=== PATIENT | male | born 1950 | race Caucasian/White ===

== ENCOUNTER 2023-03-31 03:40 | Emergency (ER) | payer MEDICARE, BC | END 2023-03-31 04:41 | disposition left against medical advice (07) | LOC: ER 03:50 | DX: Z53.21 Procedure and treatment not carried out due to patient leaving prior to being seen by health care provider (principal) ==

== ENCOUNTER 2025-02-03 12:55 | Inpatient (IN) | payer MEDICARE, BC ==
[~2025-02-03] VITALS: Ht 180.3 cm; Wt 79.4 kg
[2025-02-03] VITALS (8 sets, daily range): BP systolic 115–116; BP diastolic 75–85; TEMP 97.5–98.7; O2SAT 94–97
[2025-02-03] MEDS ORDERED: ESCI5TAB16 PO (13:06)
[2025-02-03] MEDS ORDERED: BUPR150T10 PO (13:06)
[2025-02-03] MEDS ORDERED: RAME8TAB24 PO (13:06)
[2025-02-03] MEDS ORDERED: TRAM50TA2 PO (13:06)
[2025-02-03] MEDS ORDERED: TAMS-3 PO (13:06)
[2025-02-03] MEDS ORDERED: AMLO10TA59 PO (13:07)
[2025-02-03] MEDS ORDERED: TELM80TA9 PO (13:07)
[2025-02-03 13:45] LABS: PLATELET COUNT (AUTO) 278 K/uL (152-348); RED BLOOD CELL COUNT(AUTO) 4.94 MIL/uL (4.06-5.63); RED CELL DISTRIBUTION WIDTH 14.5 % (12.1-16.2); WHITE BLOOD COUNT (AUTO) 8.0 K/uL (3.6-10.2)
[2025-02-03] MEDS ORDERED: ALBUTEROL SULFATE 2.5 MG/3 ML NEBU ONE (13:45)
[2025-02-03] MEDS ORDERED: IPRATROPIUM BROMIDE 0.5 MG/2.5 ML NEBU ONE (13:45)
[2025-02-03 13:51] LABS: CREATININE 1.4 mg/dL (0.6-1.3); SODIUM SERUM 140 mmol/L (136-145); UREA NITROGEN, BLOOD 17 mg/dL (7-18)
[2025-02-03] MEDS: ALBUTEROL SULFATE 2.5 MG/3 ML NEBU NEB ONE (13:53)
[2025-02-03] MEDS: IPRATROPIUM BROMIDE 0.5 MG/2.5 ML NEBU NEB ONE (13:53)
[2025-02-03] MEDS: MAGNESIUM SULFATE 2 GM in IV DEXTROSE 5% 100 ML IV ONE (13:56)
[2025-02-03] MEDS ORDERED: MAGNESIUM SULFATE/D5W 200 ML ONE (13:56)
[2025-02-03 13:57] LABS: ASPARTATE AMINOTRANSFERASE 12 U/L (15-37); TOTAL PROTEIN, SERUM 8.4 g/dL (6.4-8.2)
[2025-02-03] MEDS ORDERED: OXYCODONE/APAP 5-325 MG TABLET ONE (15:13)
[2025-02-03] MEDS ORDERED: SULF1TAB48 PO (15:31)
[2025-02-03] MEDS ORDERED: PHEN-705 PO (15:31)
[2025-02-03] MEDS: OXYCODONE/APAP 5-325 MG TABLET PO ONE (15:33)
[2025-02-03] MEDS ORDERED: ACET-73 PO (18:08)
[2025-02-03] MEDS ORDERED: OMEP20TA20 PO (18:08)
[2025-02-03] MEDS ORDERED: MAGN400T40 PO (18:09)
[2025-02-03] MEDS ORDERED: BUPR-53 PO (18:12)
[2025-02-03] MEDS ORDERED: PHENAZOPYRIDINE HCL 200 MG PO PRN (18:30)
[2025-02-03] MEDS ORDERED: TEMAZEPAM 15 MG CAPSULE PO PRN (19:00)
[2025-02-03] MEDS ORDERED: ONDANSETRON 4 MG/2 ML VIAL IV PRN (19:00)
[2025-02-03] MEDS: TAMSULOSIN HCL 0.4 MG CAP.SR.24H PO SCH (20:25)
[2025-02-03] MEDS: MAGNESIUM OXIDE 400 MG TABLET PO SCH (20:25)
[2025-02-03] MEDS: DOCUSATE SODIUM 100 MG CAPSULE PO SCH (20:25)
[2025-02-03] MEDS: HYDROCODONE/APAP 5-325MG TABLET PO PRN (20:27)
[2025-02-03] MEDS: LEVALBUTEROL HCL NEB 0.63 MG/3 ML NEBU NEB PRN (21:40)
[2025-02-03] MEDS: IPRATROPIUM BROMIDE 0.5 MG/2.5 ML NEBU NEB PRN (21:40)
[2025-02-04] VITALS (13 sets, daily range): BP systolic 120–146; BP diastolic 78–85; TEMP 97.6–99.1; O2SAT 90–97
[2025-02-04] MEDS: TRAMADOL HCL 50 MG TABLET PO PRN (00:02)
[2025-02-04] MEDS: PANTOPRAZOLE SODIUM 40 MG TABLET.DR PO SCH (06:18)
[2025-02-04 07:17] LABS: PLATELET COUNT (AUTO) 273 K/uL (152-348); RED BLOOD CELL COUNT(AUTO) 4.72 MIL/uL (4.06-5.63); RED CELL DISTRIBUTION WIDTH 14.6 % (12.1-16.2); WHITE BLOOD COUNT (AUTO) 5.5 K/uL (3.6-10.2)
[2025-02-04 07:31] LABS: ASPARTATE AMINOTRANSFERASE 7 U/L (15-37); CREATININE 1.3 mg/dL (0.6-1.3); SODIUM SERUM 137 mmol/L (136-145); TOTAL PROTEIN, SERUM 7.8 g/dL (6.4-8.2); UREA NITROGEN, BLOOD 14 mg/dL (7-18)
[2025-02-04] MEDS: ESCITALOPRAM OXALATE 10 MG TABLET PO SCH (08:55)
[2025-02-04] MEDS: buPROPion XL 150 MG TAB.SR.24H PO SCH (08:55)
[2025-02-04] MEDS ORDERED: SWABABLE VALVE TRANSFER SET EA MC ONE (12:33)
[2025-02-04] MEDS ORDERED: IOHEXOL 350 100 ML INFUS..BTL ONE (12:33)
[2025-02-04] MEDS ORDERED: IV NORMAL SALINE 250 ML IV ONE (12:33)
[2025-02-04 12:57] LABS: *BLOOD, URINE 3+ (NEGATIVE); *CLARITY,URINE CLEAR (CLEAR); *COLOR,URINE YELLOW (YELLOW); *KETONES,URINE 2+ (NEGATIVE); *PROTEIN,URINE 1+ (NEGATIVE); *UROBILINOGEN,URINE 0.2 E.U./dl (NORMAL); LEUKOCYTE ESTERASE ,URINE NEGATIVE (NEGATIVE); NITRITE, URINE POSITIVE (NEGATIVE); UGLUCOSE NEGATIVE (NEGATIVE)
[2025-02-04 13:02] LABS: *BILIRUBIN,URIN 1+ (NEGATIVE)
[2025-02-04 13:04] LABS: *CREATININE,URINE 223.7 mg/dL (30-125); *SODIUM RNDM,URINE 138.0 mmol/L (40-220); *URINE TOTAL PROTEIN RANDOM 41.5 mg/dL (<150/24HR)
[2025-02-04] MEDS ORDERED: MAGNESIUM OXIDE 400 MG TABLET PO SCH (21:00)
[2025-02-04] MEDS: GUAIFENESIN/DEXTROMETHORPHAN 5 ML UDC PO PRN (22:34)
[2025-02-05] VITALS (13 sets, daily range): BP systolic 122–151; BP diastolic 73–87; TEMP 97.6–98.6; O2SAT 90–99
[2025-02-05] MEDS: TEMAZEPAM 7.5 MG CAPSULE PO PRN (00:03)
[2025-02-05 06:22] LABS: PLATELET COUNT (AUTO) 313 K/uL (152-348); RED BLOOD CELL COUNT(AUTO) 4.72 MIL/uL (4.06-5.63); RED CELL DISTRIBUTION WIDTH 14.5 % (12.1-16.2); WHITE BLOOD COUNT (AUTO) 12.5 K/uL (3.6-10.2)
[2025-02-05 06:37] LABS: ASPARTATE AMINOTRANSFERASE 21 U/L (15-37); CREATINE KINASE, TOTAL 307 U/L (39-308); CREATININE 1.6 mg/dL (0.6-1.3); SODIUM SERUM 141 mmol/L (136-145); TOTAL PROTEIN, SERUM 8.7 g/dL (6.4-8.2); UREA NITROGEN, BLOOD 32 mg/dL (7-18)
[2025-02-05] MEDS ORDERED: AZITHROMYCIN IV 500 MG in IV DEXTROSE 5% 250 ML IV SCH (09:00)
[2025-02-05] MEDS: CEFTRIAXONE 1 G in IV DEXTROSE 5% 50 ML IV SCH (09:11)
[2025-02-05] MEDS: AZITHROMYCIN IV 500 MG in IV DEXTROSE 5% 250 ML IV SCH (09:49)
[2025-02-05] MEDS: LEVALBUTEROL HCL NEB 0.63 MG/3 ML NEBU NEB SCH (13:17)
[2025-02-05] MEDS: IPRATROPIUM BROMIDE 0.5 MG/2.5 ML NEBU NEB SCH (13:17)
[2025-02-05] MEDS: ACETAMINOPHEN 325 MG TABLET PO PRN (22:14)
[2025-02-06] VITALS (12 sets, daily range): BP systolic 131–153; BP diastolic 74–91; TEMP 97.3–98.2; O2SAT 90–98
[2025-02-06 06:07] LABS: PTH, INTACT 12 pg/mL (15-65)
[2025-02-06 06:50] LABS: PLATELET COUNT (AUTO) 331 K/uL (152-348); RED BLOOD CELL COUNT(AUTO) 4.93 MIL/uL (4.06-5.63); RED CELL DISTRIBUTION WIDTH 14.5 % (12.1-16.2); WHITE BLOOD COUNT (AUTO) 13.4 K/uL (3.6-10.2)
[2025-02-06 07:16] LABS: CREATININE 1.5 mg/dL (0.6-1.3); SODIUM SERUM 142 mmol/L (136-145); UREA NITROGEN, BLOOD 36 mg/dL (7-18)
[2025-02-06] MEDS ORDERED: hydrOXYzine HCL 10 MG/5 ML UDC PO PRN (12:30)
[2025-02-07] VITALS (11 sets, daily range): BP systolic 124–149; BP diastolic 79–89; TEMP 97.6–97.8; O2SAT 95–99
[2025-02-07 06:44] LABS: PLATELET COUNT (AUTO) 334 K/uL (152-348); RED BLOOD CELL COUNT(AUTO) 5.09 MIL/uL (4.06-5.63); RED CELL DISTRIBUTION WIDTH 14.6 % (12.1-16.2); WHITE BLOOD COUNT (AUTO) 14.1 K/uL (3.6-10.2)
[2025-02-07 07:02] LABS: CREATININE 1.4 mg/dL (0.6-1.3); SODIUM SERUM 143 mmol/L (136-145); UREA NITROGEN, BLOOD 38 mg/dL (7-18)
[2025-02-07] MEDS: QUETIAPINE FUMARATE 25 MG TABLET PO SCH (12:14)
[2025-02-07] MEDS: OLANZAPINE 10 MG VIAL IM ONE ×2 (14:38→23:51)
[2025-02-07] MEDS: ZIPRASIDONE MESYLATE 20 MG VIAL IM ONE (15:52)
[2025-02-07] MEDS: IV D5 1/2 NS 1000 ML 1,000 ML IV PRN (21:04)
[2025-02-08] VITALS (16 sets, daily range): BP systolic 127–144; BP diastolic 77–119; TEMP 98.2–98.4; O2SAT 92–99
[2025-02-08 06:39] LABS: PLATELET COUNT (AUTO) 365 K/uL (152-348); RED BLOOD CELL COUNT(AUTO) 5.39 MIL/uL (4.06-5.63); RED CELL DISTRIBUTION WIDTH 14.7 % (12.1-16.2); WHITE BLOOD COUNT (AUTO) 17.1 K/uL (3.6-10.2)
[2025-02-08 06:56] LABS: CREATININE 1.3 mg/dL (0.6-1.3); SODIUM SERUM 139 mmol/L (136-145); UREA NITROGEN, BLOOD 38 mg/dL (7-18)
[2025-02-08] MEDS: OLANZAPINE 10 MG VIAL IM ONE ×2 (08:03→16:47)
[2025-02-08 08:55] LABS: LYMPHOCYTES % (MANUAL) 19 % (20-40); MONOCYTES % (MANUAL) 15 % (2-10); NEUTROPHILS % (MANUAL) 65 % (42-75)
[2025-02-08 08:56] LABS: EOSINOPHILS % (MANUAL) 1 % (0-8); PLATELET ESTIMATE ADEQUATE
[2025-02-08] MEDS: ESCITALOPRAM OXALATE 10 MG TABLET PO SCH (09:00)
[2025-02-08] MEDS: buPROPion XL 150 MG TAB.SR.24H PO SCH (09:00)
[2025-02-08] MEDS: QUETIAPINE FUMARATE 25 MG TABLET PO SCH (11:30)
[2025-02-08] MEDS: QUETIAPINE FUMARATE 25 MG TABLET PO PRN (12:27)
[2025-02-09] VITALS (14 sets, daily range): BP systolic 103–147; BP diastolic 62–84; TEMP 97.7–98.3; O2SAT 94–99
[2025-02-09 06:52] LABS: PLATELET COUNT (AUTO) 274 K/uL (152-348); RED BLOOD CELL COUNT(AUTO) 5.00 MIL/uL (4.06-5.63); RED CELL DISTRIBUTION WIDTH 14.2 % (12.1-16.2); WHITE BLOOD COUNT (AUTO) 11.4 K/uL (3.6-10.2)
[2025-02-09 07:05] LABS: CREATININE 0.9 mg/dL (0.6-1.3); SODIUM SERUM 139 mmol/L (136-145); UREA NITROGEN, BLOOD 32 mg/dL (7-18)
[2025-02-09] MEDS ORDERED: OLANZAPINE 10 MG VIAL IM PRN (10:15)
[2025-02-09] MEDS ORDERED: LORAZEPAM 0.5 MG TABLET PO PRN (11:00)
[2025-02-09] MEDS ORDERED: DOCU-141 PO (11:06)
[2025-02-09] MEDS ORDERED: LEVA0.635 NEB ×2 (11:06)
[2025-02-09] MEDS ORDERED: ESCI-9 PO (11:06)
[2025-02-09] MEDS ORDERED: AMOX-427 PO (11:06)
[2025-02-09] MEDS ORDERED: LORA0.5T48 PO (11:06)
[2025-02-09] MEDS ORDERED: IPRA0.2S6 NEB ×2 (11:06)
[2025-02-09] MEDS: POTASSIUM CHLORIDE 20 MEQ TAB.PRT.SR PO ONE (12:36)
[2025-02-10 07:11] VITALS: O2SAT 96
[2025-02-10 07:26] VITALS: O2SAT 99
[2025-02-10 07:45] VITALS: BP 113/75; TEMP 97.7; O2SAT 97
[2025-02-10 08:07] LABS: A/G RATIO 0.9 (0.7-1.7); BETA GLOBULIN 1.2 g/dL (0.7-1.3); GLOBULIN, TOTAL 4.0 g/dL (2.2-3.9); M-SPIKE Not Observed g/dL (Not Observed); PROTEIN, TOTAL 7.5 g/dL (6.0-8.5)
[2025-02-10] MEDS: ESCITALOPRAM OXALATE 10 MG TABLET PO SCH (08:23)
[2025-02-10 09:07] LABS: METHYLMALONIC ACID 289.0 nmol/L (0-378)
[2025-02-10 13:08] VITALS: O2SAT 97
[2025-02-10 13:23] VITALS: O2SAT 99
[2025-02-10] MEDS: LIDOCAINE VISCUS 2% 15 ML UDC MM PRN (16:13)
[2025-02-10 16:25] VITALS: BP 110/68; TEMP 97.5; O2SAT 97
[2025-02-10] MEDS ORDERED: OLAN10VI IM (17:28)
== END 2025-02-10 16:51 | DRG 177 ==
LOC: ER 12:55 → MEDSURG3 16:49 → TELE3 18:09 → MEDSURG3 02-06 06:46 → TELE3 02-08 11:22 → MEDSURG3 02-10 09:13
PROVIDERS: ADMIT Internal Medicine; ATTEND Internal Medicine
PROC: 05HB33Z Insertion of Infusion Device into Right Basilic Vein, Percutaneous Approach (ICD-10-PCS; principal; 2025-02-03)
PROC: 05HD33Z Insertion of Infusion Device into Right Cephalic Vein, Percutaneous Approach (ICD-10-PCS; 2025-02-04)
DX: J69.0 Pneumonitis due to inhalation of food and vomit (principal); G92.8 Other toxic encephalopathy; J96.01 Acute respiratory failure with hypoxia; N17.0 Acute kidney failure with tubular necrosis; J44.0 Chronic obstructive pulmonary disease with (acute) lower respiratory infection; J21.9 Acute bronchiolitis, unspecified; F33.2 Major depressive disorder, recurrent severe without psychotic features; D68.59 Other primary thrombophilia; J44.1 Chronic obstructive pulmonary disease with (acute) exacerbation; M16.11 Unilateral primary osteoarthritis, right hip; Z85.51 Personal history of malignant neoplasm of bladder; J43.9 Emphysema, unspecified; T38.0X5A Adverse effect of glucocorticoids and synthetic analogues, initial encounter; Y92.239 Unspecified place in hospital as the place of occurrence of the external cause; F12.10 Cannabis abuse, uncomplicated; F14.11 Cocaine abuse, in remission; Z74.09 Other reduced mobility; F41.9 Anxiety disorder, unspecified; N40.1 Benign prostatic hyperplasia with lower urinary tract symptoms; R33.8 Other retention of urine; Z78.1 Physical restraint status; K22.9 Disease of esophagus, unspecified; M89.8X9 Other specified disorders of bone, unspecified site; D64.9 Anemia, unspecified; R73.9 Hyperglycemia, unspecified; Z79.899 Other long term (current) drug therapy; J98.4 Other disorders of lung; C67.9 Malignant neoplasm of bladder, unspecified; I10 Essential (primary) hypertension
CPT/HCPCS: 36415; 70030-TC; 70450; 71045; 71275; 73502; 76770; 82378; 83735; 83921; 83970; 84100; 84155; 84165; 84300; 84443; 84484; 85025; 86140; 87086; 93307; 94640; 94760; A4606; A4663; G0378; J0456; J0696; J2358; J2919; J3475; J3486; J3590; J7050; J7614; J8499; Q9967

== ENCOUNTER 2025-02-06 07:16 | Inpatient (IN) | payer MEDICARE, BC ==
[~2025-02-06] VITALS: Ht 180.3 cm; Wt 79.4 kg
[~2025-02-06 07:16] MED LIST: ACET-73 PO; TAMS-3 PO; TELM80TA9 PO; TRAM50TA2 PO
[2025-02-06 10:41] VITALS: BP 143/91; TEMP 97.8
[2025-02-06 11:45] VITALS: BP 143/91; TEMP 97.8
[2025-02-09] MEDS ORDERED: ESCI-9 PO (11:06)
[2025-02-09] MEDS ORDERED: AMOX-427 PO (11:06)
[2025-02-09] MEDS ORDERED: LEVA0.635 NEB ×2 (11:06)
[2025-02-09] MEDS ORDERED: IPRA0.2S6 NEB ×2 (11:06)
[2025-02-09] MEDS ORDERED: DOCU-141 PO (11:06)
[2025-02-09] MEDS ORDERED: LORA0.5T48 PO (11:06)
[2025-02-09 12:00] VITALS: BP 143/91; TEMP 97.8
[2025-02-09 12:10] VITALS: BP 143/91; TEMP 97.8
[2025-02-10] MEDS ORDERED: OLAN10VI IM (17:28)
[2025-02-10] MEDS ORDERED: ACETAMINOPHEN ES 500 MG TABLET- SA PATIENTS-PAIN ONLY PO PRN (18:15)
[2025-02-10] MEDS ORDERED: LORAZEPAM 0.5 MG TABLET PO PRN (18:15)
[2025-02-10] MEDS: LEVALBUTEROL HCL NEB 0.63 MG/3 ML NEBU NEB SCH (20:34)
[2025-02-10] MEDS: IPRATROPIUM BROMIDE 0.5 MG/2.5 ML NEBU NEB SCH (20:34)
[2025-02-10 20:35] VITALS: O2SAT 94
[2025-02-10] MEDS: DOCUSATE SODIUM 100 MG CAPSULE PO SCH (20:49)
[2025-02-10] MEDS: TAMSULOSIN HCL 0.4 MG CAP.SR.24H PO SCH (20:49)
[2025-02-10] MEDS: AMOXICILLIN-CLAVUL 500-125MG TABLET PO SCH (20:49)
[2025-02-10 20:50] VITALS: O2SAT 95
[2025-02-10 21:20] VITALS: BP 122/75; TEMP 97.9; O2SAT 95
[2025-02-10] MEDS: ACETAMINOPHEN 500 MG TABLET PO PRN (21:29)
[2025-02-10] MEDS: TRAMADOL HCL 50 MG TABLET PO PRN (21:32)
[2025-02-11] VITALS (14 sets, daily range): BP systolic 110–134; BP diastolic 72–73; TEMP 97.2–98.8; O2SAT 92–99
[2025-02-11] MEDS: IPRATROPIUM BROMIDE 0.5 MG/2.5 ML NEBU NEB PRN (04:42)
[2025-02-11] MEDS: LEVALBUTEROL HCL NEB 0.63 MG/3 ML NEBU NEB PRN (04:42)
[2025-02-11] MEDS: LOSARTAN POTASSIUM 50 MG TABLET PO SCH (08:57)
[2025-02-11] MEDS: ESCITALOPRAM OXALATE 10 MG TABLET PO SCH (08:57)
[2025-02-11] MEDS ORDERED: TELMISARTAN PO SCH (09:00)
[2025-02-11] MEDS ORDERED: CHLORHEXIDINE GLUCONATE 15 ML MOUTHWASH MM PRN (12:15)
[2025-02-11] MEDS: LIDOCAINE VISCUS 2% 15 ML UDC MM PRN (17:18)
[2025-02-11] MEDS: GUAIFENESIN/DEXTROMETHORPHAN 5 ML UDC PO PRN (18:56)
[2025-02-11] MEDS: ACETAMINOPHEN 500 MG TABLET PO PRN (21:16)
[2025-02-12] VITALS (12 sets, daily range): BP systolic 118–119; BP diastolic 69–87; TEMP 97.7–98.9; O2SAT 94–99
[2025-02-12] MEDS: ACETAMINOPHEN 500 MG TABLET PO PRN (00:44)
[2025-02-12] MEDS: TRAZODONE 50 MG TABLET PO PRN (00:44)
[2025-02-12] MEDS: MAG HYDROX/AL HYDROX/SIMETH 30 ML LIQUID UDC PO PRN (00:44)
[2025-02-12] MEDS: BUDESONIDE 0.5 MG/2 ML NEBU NEB SCH (19:38)
[2025-02-12] MEDS: GUAIFENESIN/DEXTROMETHORPHAN 5 ML UDC PO PRN (21:08)
[2025-02-13] VITALS (11 sets, daily range): BP systolic 103–118; BP diastolic 65–86; TEMP 97.2–98.6; O2SAT 91–99
[2025-02-13] MEDS: PANTOPRAZOLE SODIUM 40 MG TABLET.DR PO SCH (06:23)
[2025-02-13 07:29] LABS: PLATELET COUNT (AUTO) 269 K/uL (152-348); RED BLOOD CELL COUNT(AUTO) 4.81 MIL/uL (4.06-5.63); RED CELL DISTRIBUTION WIDTH 14.0 % (12.1-16.2); WHITE BLOOD COUNT (AUTO) 7.9 K/uL (3.6-10.2)
[2025-02-13 07:44] LABS: CREATININE 0.9 mg/dL (0.6-1.3); SODIUM SERUM 138 mmol/L (136-145); UREA NITROGEN, BLOOD 17 mg/dL (7-18)
[2025-02-14] VITALS (8 sets, daily range): BP systolic 106–126; BP diastolic 55–80; TEMP 97.5–98.2; O2SAT 94–99
[2025-02-14] MEDS: MELATONIN 3 MG TABLET PO SCH (21:05)
[2025-02-14] MEDS: TRAZODONE 100 MG TABLET PO ONE (21:05)
[2025-02-14] MEDS: AMITRIPTYLINE HCL 50 MG TABLET PO SCH (21:07)
[2025-02-15 04:20] VITALS: BP 118/68; TEMP 98.1; O2SAT 95
[2025-02-15 07:13] VITALS: O2SAT 96
[2025-02-15 07:28] VITALS: O2SAT 99
[2025-02-15 07:59] VITALS: BP 123/75; TEMP 97.6; O2SAT 97
[2025-02-15 10:47] VITALS: BP 95/61; TEMP 97.6; O2SAT 96
[2025-02-15] MEDS ORDERED: ALBUTEROL SULFATE 1.25 MG/3 ML NEBU NEB PRN (15:45)
[2025-02-15] MEDS ORDERED: ALBUTEROL SULFATE 1.25 MG/3 ML NEBU NEB SCH (19:30)
== END 2025-02-15 12:12 | disposition home health service (06) | DRG 189 ==
LOC: UNDOADMIN 02-10 17:14
PROVIDERS: ADMIT Physical Medicine & Rehabilitation Pain Medicine; ATTEND Physical Medicine & Rehabilitation Pain Medicine
DX: J96.01 Acute respiratory failure with hypoxia (principal); N17.0 Acute kidney failure with tubular necrosis; J44.1 Chronic obstructive pulmonary disease with (acute) exacerbation; D68.59 Other primary thrombophilia; F33.2 Major depressive disorder, recurrent severe without psychotic features; C67.9 Malignant neoplasm of bladder, unspecified; F41.9 Anxiety disorder, unspecified; M16.11 Unilateral primary osteoarthritis, right hip; R33.8 Other retention of urine; D64.9 Anemia, unspecified; G89.29 Other chronic pain; I10 Essential (primary) hypertension; M89.8X9 Other specified disorders of bone, unspecified site; N40.1 Benign prostatic hyperplasia with lower urinary tract symptoms; R73.9 Hyperglycemia, unspecified; T38.0X5A Adverse effect of glucocorticoids and synthetic analogues, initial encounter; Y92.9 Unspecified place or not applicable
CPT/HCPCS: 36415; 71045; 83735; 84100; 85025; 94640; 94760; 97535-GO-CO; A9150; J3590; J7614